=== PATIENT | female | born 1965 | race Two or more races ===

== ENCOUNTER 2018-08-04 14:48 | Emergency (ER) | payer SELFPAY ==
[~2018-08-04] VITALS: Ht 162.6 cm; Wt 66.0 kg
[2018-08-04] MEDS ORDERED: ONDANSETRON HCL 4MG/2ML INJ IV STA (16:17)
[2018-08-04] MEDS ORDERED: SODIUM CHLORIDE 0.9% 1,000 ML IV ONE (16:17)
[2018-08-04] MEDS ORDERED: KETOROLAC 30MG/ML VIAL IV STA (16:17)
[2018-08-04 16:38] LABS: HEMATOCRIT. 41.5 % (36.0-48.0); HEMOGLOBIN. 14.3 g/dL (12.0-16.0); MEAN CORPUSCULAR HEMOGLOBIN 31.1 pg (28.0-32.0); MEAN CORPUSCULAR VOLUME 90.2 fL (81.0-99.0); MEAN PLATELET VOLUME 8.6 fl (7.4-10.4); PLATELET 254 x1000/uL (130-400)
[2018-08-04 16:47] LABS: CHLORIDE 103 mEq/L (98-107)
[2018-08-04 16:52] LABS: CLARITY URINE CLEAR (CLEAR); COLOR URINE YELLOW (YELLOW); KETONES URINE NEGATIVE (NEGATIVE); LEUKOCYTE ESTERASE URINE TRACE (NEGATIVE); NITRITE URINE NEGATIVE (NEGATIVE); OCCULT BLOOD URINE NEGATIVE (NEGATIVE); PH URINE >=9.0 (4.5-8.0); PROTEIN URINE NEGATIVE (NEGATIVE); SPECIFIC GRAVITY URINE 1.013 (1.005-1.030); UROBILINOGEN URINE 0.2 E.U./dL (0.2-1.0)
[2018-08-04 17:07] LABS: PLATELET ESTIMATE NORMAL
[2018-08-04 18:26] VITALS: BP 165/87
== END 2018-08-04 18:28 | disposition home or self-care (01) ==
LOC: ER 14:48
DX: R10.815 Periumbilic abdominal tenderness (principal); N30.00 Acute cystitis without hematuria; R11.2 Nausea with vomiting, unspecified; Z98.890 Other specified postprocedural states
CPT/HCPCS: 36415; 74176; 80053; 81003; 81025; 85025; 96361; 96374; 96375; 99285; J1885; J2405; J7030